=== PATIENT | female | born 1975 | race Caucasian/White ===

== ENCOUNTER 2017-07-02 06:07 | Day surgery (SDC) | payer OTHER ==
[~2017-07-02] VITALS: Ht 162.6 cm; Wt 111.2 kg
[~2017-07-02 06:07] MED LIST: AUGMENTIN875 MG PO; ENDOCET 5-3251 EACH PO; FLAGYL500 MG PO; SYNTHROID125 MCG PO
[2017-07-02 06:57] LABS: APPEARANCE SL.HAZY ((CLEAR)); BILIRUBIN NEGATIVE; BLOOD LARGE; COLOR YELLOW ((YELLOW)); GLUCOSE (STRIP) NEGATIVE; KETONES NEGATIVE; LEUKOCYTES NEGATIVE; NITRITE NEGATIVE; PROTEIN (STRIP) 30; UROBILINOGEN 0.2 MG/DL (0.2-1.0)
[2017-07-02 07:12] LABS: BACTERIA RARE /HPF; EPITHELIAL CELLS RARE /HPF; MUCUS NONE SEEN /LPF; RED BLOOD CELLS 40-50 /HPF (0-5); WHITE BLOOD CELLS 0-5 /HPF (0-5)
[2017-07-02 07:42] LABS: CHLORIDE 105 MEQ/L (99-109); POTASSIUM 4.9 MEQ/L (3.7-5.4); SODIUM 136 MEQ/L (136-147)
[2017-07-02 07:48] LABS: CREATININE 0.6 MG/DL (0.6-1.3); GFR ESTIMATE (CALCULATED) > 59 mL/min/; GLUCOSE 125 mg/dL (70-99); UREA NITROGEN (BUN) 9 mg/dL (9-23)
[2017-07-02 07:52] LABS: QUANTITATIVE HCG 11124.6 MIU/ML
[2017-07-02 08:14] LABS: BASOPHIL (%) 0.4 % (0-1); BASOPHIL COUNT 0.1 K/uL (0-0.1); EOSINOPHIL (%) 0.5 % (0-5); EOSINOPHIL COUNT 0.1 K/uL (0-0.3); HEMATOCRIT 37.7 % (36.0-46.0); IMMATURE GRANULOCYTE (%) 0.3 % (0.0-0.7); LYMPHOCYTE (%) 18.5 % (15-42); LYMPHOCYTE COUNT 2.4 K/uL (1.0-2.8); MCH 30.4 PG (29.0-34.0); MCHC 34.5 G/DL (30.0-36.0); MCV 88.3 FL (83-99); MONOCYTE (%) 3.6 % (3-12); MONOCYTE COUNT 0.5 K/uL (0-0.8); NEUTROPHIL (%) 76.7 % (45-76); PLATELET COUNT 359 K/uL (156-360); RBC DIS.WIDTH-CV 12.8 % (11.8-14.6); RBC DIS.WIDTH-SD 41.6 % (39-53); RED BLOOD COUNT 4.27 M/uL (3.80-5.20); WHITE BLOOD COUNT 13.1 K/uL (4.1-10.2)
[2017-07-02] MEDS ORDERED: IBUPROFEN800 MG PO (13:53)
[2017-07-02] MEDS ORDERED: DOXYCYCLINE HY100 M3 PO (13:53)
[2017-07-02 14:00] LABS: BASOPHIL (%) ND % (0-1); EOSINOPHIL (%) ND % (0-5); HEMATOCRIT ND % (36.0-46.0); HEMOGLOBIN ND G/DL (11.9-15.5); IMM.PLATELET FRACTION ND (1-7); IMMATURE GRANULOCYTE (%) ND % (0.0-0.7); LYMPHOCYTE (%) ND % (15-42); LYMPHOCYTE COUNT ND K/uL (1.0-2.8); MCH ND PG (29.0-34.0); MCHC ND G/DL (30.0-36.0); MCV ND FL (83-99); MONOCYTE (%) ND % (3-12); MONOCYTE COUNT ND K/uL (0-0.8); NEUTROPHIL (%) ND % (45-76); PLATELET COUNT ND K/uL (156-360); RBC DIS.WIDTH-CV ND % (11.8-14.6); RBC DIS.WIDTH-SD ND % (39-53); RED BLOOD COUNT ND M/uL (3.80-5.20); WHITE BLOOD COUNT ND K/uL (4.1-10.2)
[2017-07-02 14:01] LABS: ACANTHOCYTES ND; ANISOCYTOSIS ND; ATYPICAL LYMPHOCYTE ND %; BAND NEUTROPHILS ND % (0-8.0); BASOPH.STIPPLING ND; BASOPHIL COUNT ND K/uL (0-0.1); BASOPHILS ND %; BURR CELLS ND; EOSINOPHIL COUNT ND K/uL (0-0.3); EOSINOPHILS ND % (0-5.0); GIANT PLATELETS ND; HELMET CELLS ND; HOWELL JOLLY BODIES ND; HYPERSEGMENTATION ND; HYPOCHROMASIA ND; LARGE PLATELETS ND; LYMPHOCYTES ND % (15.0-45.0); MACROCYTES ND; METAMYELOCYTES ND %; MICROCYTOSIS ND; MONOCYTES ND % (0-9.0); MYELOCYTES ND %; NEUTROPHIL COUNT ND K/uL (1.8-6.4); NRBC (%) ND /100 WBC (0-0); NUCLEATED RBC'S ND; OTHER ND; OVALOCYTES ND; PLATELET CLUMPS ND; POIKILOCYTOSIS ND; POLYCHROMASIA ND; SCHISTOCYTES ND; SEG.NEUTROPHILS ND % (46.0-76.0); SICKLE CELLS ND; SMUDGE CELLS ND; SPHEROCYTES ND; TARGET CELLS ND; TEAR DROP CELLS ND; TOX.VACUOLIZATION ND; TOXIC GRANULATION ND
[2017-07-02 14:02] LABS: ABS NEUTROPHIL COUNT ND; EOSINOPHIL ABS CT ND; HEMATOLOGY COMMENT 1 ND; PLAT.SUFFICIENCY ND
[2017-07-02 14:30] VITALS: BP 155/80
[2017-07-02 15:15] VITALS: BP 151/77
== END 2017-07-02 15:25 | disposition home or self-care (01) ==
LOC: EME 06:07 → SDC 13:39
PROVIDERS: Emergency Medicine
PROC: 10D17ZZ Extraction of Products of Conception, Retained, Via Natural or Artificial Opening (ICD-10-PCS; principal; 2017-07-02)
DX: O03.4 Incomplete spontaneous abortion without complication (principal); Z3A.10 10 weeks gestation of pregnancy; E03.9 Hypothyroidism, unspecified
CPT/HCPCS: 76801; 80048; 81003; 84702; 85025; 85025 91; 86900; 86901; 88305; 93005; 99281; 99285; J0690; J1100; J1885; J2250; J2270; J2405; J3010; J7030